=== PATIENT | female | born 1990 | race Caucasian/White ===

== ENCOUNTER 2024-12-07 19:18 | Emergency (ER) | payer OTHER ==
[~2024-12-07] VITALS: Ht 154.9 cm; Wt 63.5 kg
[2024-12-07] MEDS ORDERED: IBUPROFEN 600 MG TABLET ONE (19:57)
[2024-12-07] MEDS: IBUPROFEN 600 MG TABLET PO ONE (19:59)
[2024-12-07 20:10] VITALS: BP 119/87; TEMP 98.1; O2SAT 95
== END 2024-12-07 20:11 | disposition home or self-care (01) ==
LOC: ER 19:30
DX: S80.211A Abrasion, right knee, initial encounter (principal); Y04.0XXA Assault by unarmed brawl or fight, initial encounter; Y93.89 Activity, other specified; Y92.89 Other specified places as the place of occurrence of the external cause; Y99.8 Other external cause status